=== PATIENT | male | born 1945 | race Caucasian/White ===

== ENCOUNTER → 2020-10-06 | Outpatient (CLI) | payer MEDICARE ==
--- NOTE | 2020-10-06 12:15 | Diagnostic Imaging Report ---
INDICATION: Knee pain FINDINGS: 3 view right knee shows a moderate joint effusion seen in the lateral view with at least mild tricompartmental osteoarthritis. There is some bony demineralization but no fracture identified. No abnormal periosteal reaction. No opaque loose body. IMPRESSION: Likely osteopenia and at least mild arthritis with atherosclerotic vascular calcifications and a suprapatellar knee joint effusion. No fracture, loose body or acute bony pathology. Dictated by: Dictated on workstation # [id number]
== END ==
LOC: RAD FS 09:37
PROVIDERS: ATTEND Nurse Practitioner
DX: M17.11 Unilateral primary osteoarthritis, right knee (principal); I25.84 Coronary atherosclerosis due to calcified coronary lesion
CPT/HCPCS: 73562